=== PATIENT | male | born 1970 | race Hispanic/Latino ===

== ENCOUNTER 2016-09-10 14:30 | Emergency (ER) | payer OTHER ==
[~2016-09-10] VITALS: Ht 172.7 cm; Wt 71.8 kg
[~2016-09-10 14:30] MED LIST: BISA5TAB12 PO; METF10002 PO; PEG2480S PO
[2016-09-10 14:39] VITALS: BP 187/93; PULSE 104; RESP 15; O2SAT 98
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
[2016-09-10] MEDS ORDERED: HYDROmorphone 1 mg/mL Inj IVPUSH ONE (16:35)
[2016-09-10] MEDS: Ondansetron 2 mg/mL 2 mL Inj IVPUSH PRN ×4 (16:49→18:26)
[2016-09-10 17:27] LABS: BASOPHILS % (AUTO) 0.4 % (0-3); EOSINOPHILS % (AUTO) 0.9 % (0-5); MONOCYTES % (AUTO) 4.1 % (4-12); Mean Corpuscular Hemoglobin 30.2 pg (27.0-35.0); Mean Corpuscular Volume 84.2 fL (81-100); Platelet Count 250 bil/L (150-400)
[2016-09-10 17:53] VITALS: BP 156/85; PULSE 100; RESP 16; O2SAT 100
[2016-09-10 18:28] VITALS: BP 169/90; PULSE 103; RESP 15; O2SAT 97
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
[2016-09-10 19:29] VITALS: BP 141/83; PULSE 103; RESP 12; O2SAT 96
== END 2016-09-10 19:31 | disposition home or self-care (01) ==
LOC: EDBD 14:30 → SED 14:30
DX: S16.1XXA Strain of muscle, fascia and tendon at neck level, initial encounter (principal); S00.93XA Contusion of unspecified part of head, initial encounter; S20.219A Contusion of unspecified front wall of thorax, initial encounter; V43.52XA Car driver injured in collision with other type car in traffic accident, initial encounter; Y93.89 Activity, other specified; Y92.410 Unspecified street and highway as the place of occurrence of the external cause; Y99.8 Other external cause status; R10.84 Generalized abdominal pain; E11.9 Type 2 diabetes mellitus without complications; Z88.8 Allergy status to other drugs, medicaments and biological substances
CPT/HCPCS: 36415; 70450; 71260; 72125; 74177; 80053; 85025; 96374; 96375; 96376; 99285; J1170; J2405; Q9967

== ENCOUNTER 2017-01-10 11:30 | Emergency (ER) | payer OTHER ==
[2017-01-10 11:37] VITALS: BP 159/86; PULSE 86; RESP 16; O2SAT 99
--- NOTE | 2017-01-10 11:55 | ED.REPORT ---
HPI-Back Pain 40 and Over Date of Service Jan 10, 2017 ED Provider: History of Present Illness: picked up a 4 by 6 piece of sheet rock around 11 this am, putting it in car and started noticing pain.pain down right side . 20 years ago had an episode of back pain which resolved. 05/08 denies bowel or bladder problems. primary care is [facility]. Works sunday thru Sunday 8 to 5 pm. Nursing Notes Stated Complaint: BACK PAIN Chief Complaint: Back Pain or Injury Nursing Notes Reviewed: Yes Allergies: Coded Allergies: pioglitazone (Verified Allergy, Unknown, diarrhea, 01/10/17) Scheduled Bisacodyl-Expunged Drug, Do Not Renew! (Bisacodyl-Expunged Drug, Do Not Renew!) 5 Mg Tablet.dr 20 MG PO ONCE take 20mg by oral route at noon on the day of colonoscopy preparation Metformin-Expunged Drug, Do Not Renew! (Metformin-Expunged Drug, Do Not Renew!) 1,000 Mg Tablet 1,000 MG PO BIDWM CONTRAINDICATED: MALES SrCr 1.5 OR GREATER; FEMALES SrCr 1.4 ORGREATER ORCrCl <60; HOLD METFORMIN 48 HOURS AFTER IV CONTRAST ADMINISTRATION. 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 Ambulatory Status Independent Review of Systems Basic Review of Systems Eyes: Vision NL, No discharge Endocrine: No cold intolerance, No heat intolerance, No weight gain, No weight loss Psychiatric: Normal thought content Physical Exam Initial Vital Signs Vital Signs (First) Date Time Temp Pulse Resp B/P Pulse Ox O2 Delivery O2 Flow Rate FiO2 01/10/17 11:37 36.1 86 16 159/86 99 Room Air Initial VS: Reviewed, Vital signs normal Head / Eyes: Atraumatic, Normocephalic, PERRL ENT: Mucous membranes moist, Conjunctiva normal, No scleral icterus Neck: Supple, Non-tender, Full range of motion Lymphatic: No lymphadenopathy Extremities: Vascular intact, Neuro intact, No swelling, No tenderness Skin: Warm, Dry, No cyanosis Psychiatric: Mood/affect normal, Behavior normal, Normal thought content General/Constitutional: Awake, Alert, No acute distress, Well appearing, Well developed, Well hydrated Respiratory / Chest: Atraumatic, Breath sounds NL, Breath sounds = bilat, No respiratory distress Cardiovascular: Heart rate NL, Regular rhythm, Heart sounds NL, No gallop Abdomen: Atraumatic, Soft, Non-tender, McBurney's non-tender Back: Atraumatic Flank / Spine / Paraspinal: Positive: Lumbar paraspinal tend... (Low) Neurologic: Oriented X3, Speech NL, No motor deficits, No sensory deficits, CN II - XII intact, Reflexes equal bilat, Cerebellar NL, Memory NL, Gait NL Lower Extremity / Pelvis / MS: Atraumatic, Inspection NL, Full range of motion , No swelling, Non-tender, No erythema Interpretation & Diagnostics Lab Results Interpretation Test 01/10/17 13:10 Hold Urine Received (Received) Re-Eval/Medical Decision Med Decision/Clinical Course 46 year old male present for evualation of back pain which occured while lifting a 4 by 6 piece of sheetrock earlier this am. Denies chronic back pain. Arrives by ambulance. Exam is reassuring. No sign of cauda equina syndrome or aortic dissection. Patient displaying relaxed behavior after toradol and ativan and dex. Reports pain has decreased from 30 to 25 Discharge & Departure Impression: Primary Impression: Lumbosacral strain Encounter type: initial encounter Qualified Code: S39.012A - Strain of muscle, fascia and tendon of lower back, initial encounter Disposition: Home Patient Instructions: Lumbar Radiculopathy (ED), Sciatica (ED) Additional Instructions: Your urine looks good, no sign of any blood. You are off work this week 01/10 thru 01/12/2017. Next week 01/15 thru 01/19, you are to do supervisory duties only , no lifting. Please follow with Dr. Encinas. I am anticipating a decrease in your pain. Continue with decadron 10 mg a day for 5 days. After that start ibuprofen 800 mg 3 times a day for 5 days. Use hydrocodone 1 up to 2 times a day as needed for severe pain.#20 Use ativan 1 mg at night to help relax your muscles. Note for work provided. Referrals: Gabby Hendrix (PCP) Hood Encinas MD EDSupervising Provider for APC: Eusebio Scott MD copies to: Hood Encinas MD; Gabby Hendrix Sue ARNP Jan 10, 2017 11:54
[2017-01-10] MEDS ORDERED: Pantoprazole 20 mg ER24 Tablet PO ONE (12:05)
[2017-01-10] MEDS ORDERED: Dexamethasone 20 mg/2 mL Oral Solution PO ONE (12:05)
[2017-01-10] MEDS ORDERED: LORazepam 1 mg Tablet PO ONE (12:05)
[2017-01-10 13:44] VITALS: BP 169/100; RESP 15; O2SAT 99
== END 2017-01-10 13:40 | disposition home or self-care (01) ==
LOC: EDBD 11:30 → SED 11:30 → EDUNIT# 11:30 → SED 13:40
DX: S39.012A Strain of muscle, fascia and tendon of lower back, initial encounter (principal); X50.0XXA Overexertion from strenuous movement or load, initial encounter; Y93.89 Activity, other specified; Y99.0 Civilian activity done for income or pay; Y92.69 Other specified industrial and construction area as the place of occurrence of the external cause; E11.9 Type 2 diabetes mellitus without complications; Z79.84 Long term (current) use of oral hypoglycemic drugs; Z88.8 Allergy status to other drugs, medicaments and biological substances
CPT/HCPCS: 81002; 96372; 99284; J1885